=== PATIENT | female | born 2000 | race Caucasian/White ===

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

== ENCOUNTER 2023-01-21 09:44 | Emergency (ER) | payer MEDICAID, SELFPAY ==
[2023-01-21 09:48] VITALS: BP 106/73; PULSE 77; RESP 14; TEMP 36.2; O2SAT 99; BMI 20.1
[2023-01-21 10:11] LABS: MANUAL DIFF FLAG NO
[2023-01-21 10:15] LABS: Basophils Percent Auto 0.4 % (0-2); Eosinophils Absolute Auto 0.1 X10*3/uL (0.0-0.4); Eosinophils Percent Auto 0.8 % (0-4); Hematocrit 35.8 % (37.0-47.0); Hemoglobin 11.9 g/dl (12.0-16.0); Imm Gran Abs Auto 0.02 X10*3/uL (0.00-0.03); Imm Gran Pct Auto 0.3 % (0.0-0.4); Lymphocytes Absolute Auto 2.2 X10*3/uL (1.2-4.9); Lymphocytes Percent Auto 29.8 % (20-40); Mean Corpuscular HGB Conc 33.2 g/dl (31.0-35.0); Mean Corpuscular Hemoglobin 30.8 pg (27.0-33.0); Mean Corpuscular Volume 92.7 fL (80.0-98.0); Mean Platelet Volume 9.4 fL (9.4-12.3); Monocytes Absolute Auto 0.4 X10*3/uL (0.1-1.2); Monocytes Percent Auto 5.2 % (2-11); Neutrophils Absolute Auto 4.7 x10*3/uL (2.0-8.3); Neutrophils Percent Auto 63.5 % (45-73); Platelet Count 210 X10*3/uL (160-400); Red Blood Count 3.86 X10*6/uL (4.20-5.50); Red Cell Distribution Width 11.8 % (11.0-16.0); White Blood Count 7.3 X10*3/uL (4.8-10.8)
[2023-01-21 10:35] LABS: Alanine Aminotransferase 7 U/L (0-31); Albumin Level 4.5 g/dL (3.5-5.0); Alkaline Phosphatase 57 U/L (39-117); Anion Gap 12 (12-20); Aspartate Amino Transferase 11 U/L (5-31); Bilirubin Total 0.4 mg/dL (0.0-1.0); Blood Urea Nitrogen 8 mg/dL (9-16); Calcium 9.1 mg/dL (8.4-10.2); Carbon Dioxide 22 mmol/L (22-29); Chloride 108 mmol/L (96-108); Creatinine Clr Calc Pharmacy 111.8; Estimated Glomerular Filt Rate > 60; Glucose Random 90 mg/dL (60-115); Potassium 3.5 mmol/L (3.3-5.1); Sodium 138 mmol/L (135-145); Total Protein 7.3 g/dL (6.5-8.0)
[2023-01-21] MEDS: Acetaminophen 325 MG TABLET 650 MG PO (10:45)
--- NOTE | 2023-01-21 10:52 | ED_ITS ---
HPI - Nausea/Vomiting/Diarrhea General Chief complaint: Nausea/Vomiting/Diarrhea Stated complaint: headache Time Seen by Provider: 01/21/23 10:13 Source: patient Mode of arrival: ambulatory Limitations: no limitations History of Present Illness HPI Narrative: 22-year-old female presenting with complaints of nausea, diffuse headache for the past 4 days, reports that this morning she felt like something was off, has not had a period since late November and took a test at home which is positive. Reports her headache is diffuse in nature without trauma, visual changes, dizziness or weakness. Also reports she has been nauseous throughout the entire day for the past 4 days. Has not yet seen an OBGYN. Not taking vitamins. Denies fevers, chills, chest pain, shortness breath, vision changes, dizziness, weakness, trauma, abdominal pain, vaginal bleeding. Related Data Previous Rx's Medication Instructions Recorded mv-mn no.97-folic 180 mcg-dha 25 1 tab PO DAILY #30 tabs 01/21/23 mg-herb no.293 25 mg chewable tablet (Alive Daily Support ) Allergies Allergy/AdvReac Type Severity Reaction Status Date / Time amoxicillin Allergy Hives Verified 01/21/23 09:48 diphenhydramine Allergy Hives Verified 01/21/23 09:48 [From Benadryl] Sulfa (Sulfonamide Allergy Hives Verified 01/21/23 09:48 Antibiotics) Review of Systems 2 Review of Systems: Constitutional : No Weight loss, No Fever, No Chills, No Fatigue, No Malaise ENT/Mouth : No sore throat, No Rhinorrhea Eyes: No Eye Pain, No Swelling, No Redness Cardiovascular : No Chest Pain, No SOB, No Dyspnea on Exertion, No Orthopnea, No Edema, No Palpitations Respiratory : No Cough, No Sputum, No Wheezing Gastrointestinal : + Nausea, No Vomiting, No Diarrhea, No Constipation, No abdominal Pain, No Hematochezia, No Melena Genitourinary : No Dysuria, No Urinary Frequency, No Hematuria, Musculoskeletal : No joint pain, No Myalgias, No Joint Swelling Skin : No Skin Lesions, No rash Neuro : No Weakness, No Numbness, No Dizziness, + Headache Psych : No Anxiety/Panic, No Depression All other systems reviewed and are negative Yes all other systems are reviewed and are negative [facility] Past Medical History Attestation statement: The following information was validated with the patient. Source: old records reviewed and nursing notes reviewed Social History Social History Advance Directives: No Advance Directives Information Provided: Yes Physical Exam 2 Vital Signs: Vital Signs: Last Vital Signs Temp 97.1 F 01/21/23 09:48 Pulse 67 01/21/23 12:03 Resp 14 01/21/23 12:03 BP 99/57 L 01/21/23 12:03 Pulse Ox 100 01/21/23 12:03 O2 Del Method Room Air 01/21/23 12:03 BMI result Body Mass Index 20.1 vss Appearance: Alert.? Oriented X3.? No acute distress.? Head: Normocephalic, atraumatic, no step-offs or deformities Eyes: Pupils equal, round and reactive to light.? Neck: Normal inspection.? Neck supple.? CVS: Normal heart rate and rhythm.? Pulses normal.? Respiratory: No respiratory distress.? Breath sounds normal.? Abdomen: Soft and nontender.? Skin: Skin warm and dry.? Normal skin color.? Normal skin turgor.? Extremities: No lower extremity edema.? No calf ttp. 5/5 strength to bilateral upper and lower extremities Neuro: Oriented X 3.? No motor deficit.? No sensory deficit. CN 2-12 intact Course Reevaluation(s) Reevaluation #1: CBC with a normocytic anemia likely secondary to . Chemistry unremarkable. Beta hCG 28,922 patient will be discharged home with vitamins. Will have her follow-up with OBGYN. Headache improved with Tylenol. Educated patient on diagnosis and treatment plan, answered all question, patient verbalizes understanding. At this time patient will be discharged home, advised to return with new or worsening symptoms. Educated on worrisome signs and symptoms and when to return. At this time I feel comfortable discharge home. Time: 12:36 Medications Administered Discontinued Medications Generic Name Dose Route Start Last Admin Trade Name Freq PRN Reason Stop Dose Admin Acetaminophen 650 mg 01/21/23 10:35 01/21/23 10:45 Acetaminophen 325 Mg Tablet PO 01/21/23 10:36 650 mg ONCE ONE Administration Medical Decision Making Medical Decision Making [facility] Narrative: 1030 22 yo f presents w/ nausea and headache X 4 days. + this morning Pe benign. Neuro nonfocal. Cerebellar intact Hx and PE concerning for . No abd pain or bleeding therfor low suspicion for torsion, ectopic. No vomiting, unlikley metabolic derrangments. headache likely secondary to , unlikely intracranial hemorrhage, stroke, posterior stroke. Plan labs, hCG will give Tylenol for pain. Differential Diagnosis Differential Diagnoses: The differential diagnosis associated with the presentation includes Hx and PE concerning for . No abd pain or bleeding therfor low suspicion for torsion, ectopic. No vomiting, unlikley metabolic derrangments. headache likely secondary to , unlikely intracranial hemorrhage, stroke, posterior stroke. Admission/Observation Consideration of admission/observation: Escalation of care including admission/observation considered Unlikely Lab Data MDM Lab Attestation statement: I reviewed the patient's lab results. 01/21/23 10:05 01/21/23 10:05 Labs: Lab Results 01/21/23 01/21/23 Range/Units 10:05 12:22 WBC 7.3 (4.8-10.8) X10*3/uL RBC 3.86 L (4.20-5.50) X10*6/uL Hgb 11.9 L (12.0-16.0) g/dl Hct 35.8 L (37.0-47.0) % MCV 92.7 (80.0-98.0) fL MCH 30.8 (27.0-33.0) pg MCHC 33.2 (31.0-35.0) g/dl RDW 11.8 (11.0-16.0) % Plt Count 210 (160-400) X10*3/uL MPV 9.4 (9.4-12.3) fL Immature Gran % (Auto) 0.3 (0.0-0.4) % Neut % (Auto) 63.5 (45-73) % Lymph % (Auto) 29.8 (20-40) % [place] % (Auto) 5.2 (2-11) % Eos % (Auto) 0.8 (0-4) % Baso % (Auto) 0.4 (0-2) % Lymph # (Auto) 2.2 (1.2-4.9) X10*3/uL [place] # (Auto) 0.4 (0.1-1.2) X10*3/uL Eos # (Auto) 0.1 (0.0-0.4) X10*3/uL Baso # (Auto) 0.0 (0.0-0.2) X10*3/uL Abs Immat Gran (auto) 0.02 (0.00-0.03) X10*3/uL Absolute Neuts (auto) 4.7 (2.0-8.3) x10*3/uL Absolute Nucleated RBC 0.000 (0.0-0.012) X10*3/uL Nucleated RBC % (auto) 0.0 (0.0-0.2) /100WBC Sodium 138 (135-145) mmol/L Potassium 3.5 (3.3-5.1) mmol/L Chloride 108 (96-108) mmol/L Carbon Dioxide 22 (22-29) mmol/L Anion Gap 12 (12-20) BUN 8 L (9-16) mg/dL Creatinine 0.73 (0.5-1.4) mg/dL Estim Creat Clear Calc 111.8 Estimated GFR > 60 Random Glucose 90 (60-115) mg/dL Calcium 9.1 (8.4-10.2) mg/dL Total Bilirubin 0.4 (0.0-1.0) mg/dL AST 11 (5-31) U/L ALT 7 (0-31) U/L Alkaline Phosphatase 57 (39-117) U/L Total Protein 7.3 (6.5-8.0) g/dL Albumin 4.5 (3.5-5.0) g/dL Beta HCG, Quant 56584 mIU/mL Urine Color Yellow Urine Appearance Clear Urine pH 6.0 (5.0-9.0) Ur Specific [place] 1.025 (1.005-1.025) Urine Protein Negative (Neg-Trace) mg/dL Urine Glucose (UA) Negative (Negative) mg/dL Urine Ketones Negative (Negative) mg/dL Urine Blood Negative (Negative) Urine Nitrite Negative (Negative) Ur Leukocyte Esterase Negative (Negative) Tests considered The following testing was considered but not selected: I considered obtaining head CT however nonfocal neuro assessment no abdominal pain or tenderness to palpation, no need for transvaginal ultrasound at this time or Doppler study. Critical Care Time Critical Care Time Critical Care Time: No Discharge Plan Discharge Clinical Impression: Nausea, Elevated serum hCG Patient Disposition: Home, Self-Care Instructions: Acute Nausea and Vomiting (ED) Additional Instructions: Take your medications as prescribed. If you were prescribed antibiotics today, it is important that you take your medication to their entirety, do not skip any doses, do not finish them early. Follow-up with your primary care provider this week. Return to the emergency department with new or worsening symptoms. Such as fevers, chills, chest pain, shortness of breath, nausea, vomiting, dizziness, headache, vision changes, lethargy In case of emergency call 911 please follow-up with your PCP or OBGYN for repeat beta hCG. You should follow-up with your OBGYN return with any abdominal pain, vaginal bleeding, back pain , fevers and chills. Beta hCG 28,922, your beta hCG show that you are around 6-7 weeks put possibly up to 12 weeks. ( more than likely 6-7 based off of your last period) Prescriptions: New Alive Daily Support 180 mcg-25 mg- 25 mg tablet,chewable 1 tab PO DAILY Qty: 30 0RF Referrals: Physician,None [Primary Care Provider] - 2 days Stand Alone Forms: Work/School Release Interventions: ED Discharge Assessment Last Done: 01/21/23 12:53 Discharge Date/Time: 01/21/23 12:55
[2023-01-21 12:03] VITALS: BP 99/57; PULSE 67; RESP 14; O2SAT 100
[2023-01-21 12:41] LABS: Appearance Urine Clear; Color Urine Yellow; Glucose Urine UA Negative (Negative); Leukocyte Esterase Urine Negative (Negative); Nitrite Urine Negative (Negative); Specific Gravity - Urine 1.025 (1.005-1.025); Urine Blood Negative (Negative); Urine Ketones Negative (Negative); Urine Protein Negative (Neg-Trace)
== END 2023-01-21 12:55 | disposition home or self-care (01) ==
PROVIDERS: Emergency Provider Emergency Medicine
DX: R11.2 Nausea with vomiting, unspecified (principal); R19.7 Diarrhea, unspecified; R51.9 Headache, unspecified
CPT/HCPCS: 36415; 80053; 81003; 84702; 85025; 99283

== ENCOUNTER 2023-01-30 18:57 | Emergency (ER) | payer MEDICAID, SELFPAY ==
--- NOTE | ~2023-01-30 | US_ITS ---
EXAMINATION: US OBSTETRICAL ULTRASOUND CLINICAL INFORMATION: with pelvic pain. Positive hCG. COMPARISON: None available. LMP: Unknown. Gestational age by maternal dates is unknown. Estimated date of delivery by maternal dates is unknown. TECHNIQUE: Transabdominal imaging of pelvis is performed. FINDINGS: There is a single intrauterine gestational sac with visible yolk sac, embryo/fetus, and cardiac activity. There is no significant subchorionic hemorrhage or hematoma. HR: 139 beats per minute. CRL (crown rump length): 0.79 cm (6876 days +/- 4 days). ALBERT (estimated date of delivery): 09/16/2023 +/- 4 days. MATERNAL ADNEXA: The right maternal ovary measures 2.5 x 2.1 x 1.9 cm. The left maternal ovary measures 3.4 x 3.7 x 3.5 cm. There is anechoic cyst measuring 2.1 x 2.4 x 2.5 cm There is no significant maternal adnexal mass. No maternal pelvic ascites. US/US OB <= 14 weeks fetus IMPRESSION: 1. Single intrauterine gestation with ultrasound gestational age of 6 weeks and 6 days +/- 4 days. 2. Estimated date of delivery is 09/19/2023 +/- 4 days. 3. Small left ovarian cyst measuring 3.1 cm.
[2023-01-30 19:26] VITALS: BP 109/64; PULSE 70; RESP 18; TEMP 37; O2SAT 100; BMI 20.4
--- NOTE | 2023-01-30 19:27 | ED_ITS ---
HPI - General Adult General Chief complaint: Abdominal Pain Stated complaint: 7.5 weeks preg, stomach feels like its gnna blow History of Present Illness HPI narrative: Patient left before completion of treatment ED provider. Related Data Previous Rx's Medication Instructions Recorded mv-mn no.97-folic 180 mcg-dha 25 1 tab PO DAILY #30 tabs 01/21/23 mg-herb no.293 25 mg chewable tablet (Alive Daily Support ) Allergies Allergy/AdvReac Type Severity Reaction Status Date / Time amoxicillin Allergy Hives Verified 01/30/23 19:26 diphenhydramine Allergy Hives Verified 01/30/23 19:26 [From Benadryl] Sulfa (Sulfonamide Allergy Hives Verified 01/30/23 19:26 Antibiotics) [facility] Social History Social History Advance Directives: No Advance Directives Information Provided: No Physical Exam ED Vital Signs: BMI result Body Mass Index 20.4 Course Course Course Narrative: RME: 22 yold female presents to the ED for pelvic pain. patient is 7.5 weeks . patient states no nuasea, vomitting, or dysuria. labs and OB ultrasound ordered Medical Decision Making Lab Data 01/30/23 21:26 01/30/23 21:25 Labs: Lab Results 01/30/23 01/30/23 Range/Units 21:25 21:26 WBC 8.6 (4.8-10.8) X10*3/uL RBC 3.66 L (4.20-5.50) X10*6/uL Hgb 11.0 L (12.0-16.0) g/dl Hct 33.0 L (37.0-47.0) % MCV 90.2 (80.0-98.0) fL MCH 30.1 (27.0-33.0) pg MCHC 33.3 (31.0-35.0) g/dl RDW 11.6 (11.0-16.0) % Plt Count 201 (160-400) X10*3/uL MPV 9.6 (9.4-12.3) fL Immature Gran % (Auto) 0.3 (0.0-0.4) % Neut % (Auto) 72.6 (45-73) % Lymph % (Auto) 21.9 (20-40) % [place] % (Auto) 4.1 (2-11) % Eos % (Auto) 0.9 (0-4) % Baso % (Auto) 0.2 (0-2) % Lymph # (Auto) 1.9 (1.2-4.9) X10*3/uL [place] # (Auto) 0.4 (0.1-1.2) X10*3/uL Eos # (Auto) 0.1 (0.0-0.4) X10*3/uL Baso # (Auto) 0.0 (0.0-0.2) X10*3/uL Abs Immat Gran (auto) 0.03 (0.00-0.03) X10*3/uL Absolute Neuts (auto) 6.2 (2.0-8.3) x10*3/uL Absolute Nucleated RBC 0.000 (0.0-0.012) X10*3/uL Nucleated RBC % (auto) 0.0 (0.0-0.2) /100WBC PT 11.5 (11.1-13.3) SEC INR 0.9 (0.9-1.1) APTT 30.5 (26.0-36.4) SEC Sodium 139 (135-145) mmol/L Potassium 2.8 L (3.3-5.1) mmol/L Chloride 105 (96-108) mmol/L Carbon Dioxide 23 (22-29) mmol/L Anion Gap 14 (12-20) BUN 8 L (9-16) mg/dL Creatinine 0.56 (0.5-1.4) mg/dL Estim Creat Clear Calc 147.9 Estimated GFR > 60 Random Glucose 96 (60-115) mg/dL Calcium 9.4 (8.4-10.2) mg/dL Total Bilirubin 0.2 (0.0-1.0) mg/dL AST 12 (5-31) U/L ALT 9 (0-31) U/L Alkaline Phosphatase 58 (39-117) U/L Total Protein 7.4 (6.5-8.0) g/dL Albumin 4.4 (3.5-5.0) g/dL Beta HCG, Quant 694099 mIU/mL Blood Type O Positive Discharge Plan Discharge Clinical Impression: Abdominal pain Patient Disposition: Left W/O Completing Treatment Prescriptions: No Action Alive Daily Support 180 mcg-25 mg- 25 mg tablet,chewable 1 tab PO DAILY Qty: 30 0RF Discharge Date/Time: 01/30/23 23:19
[2023-01-30 21:30] LABS: MANUAL DIFF FLAG NO
[2023-01-30 21:33] LABS: Basophils Percent Auto 0.2 % (0-2); Eosinophils Absolute Auto 0.1 X10*3/uL (0.0-0.4); Eosinophils Percent Auto 0.9 % (0-4); Imm Gran Abs Auto 0.03 X10*3/uL (0.00-0.03); Imm Gran Pct Auto 0.3 % (0.0-0.4); Lymphocytes Absolute Auto 1.9 X10*3/uL (1.2-4.9); Lymphocytes Percent Auto 21.9 % (20-40); Mean Corpuscular HGB Conc 33.3 g/dl (31.0-35.0); Mean Corpuscular Hemoglobin 30.1 pg (27.0-33.0); Mean Corpuscular Volume 90.2 fL (80.0-98.0); Mean Platelet Volume 9.6 fL (9.4-12.3); Monocytes Absolute Auto 0.4 X10*3/uL (0.1-1.2); Monocytes Percent Auto 4.1 % (2-11); Neutrophils Absolute Auto 6.2 x10*3/uL (2.0-8.3); Neutrophils Percent Auto 72.6 % (45-73); Platelet Count 201 X10*3/uL (160-400); Red Blood Count 3.66 X10*6/uL (4.20-5.50); Red Cell Distribution Width 11.6 % (11.0-16.0); White Blood Count 8.6 X10*3/uL (4.8-10.8)
[2023-01-30 21:44] LABS: INTERNATIONAL NORM RATIO 0.9 (0.9-1.1); Prothrombin Time 11.5 SEC (11.1-13.3)
[2023-01-30 21:47] LABS: Partial Thromboplastin Time 30.5 SEC (26.0-36.4)
[2023-01-30 23:25] LABS: Alanine Aminotransferase 9 U/L (0-31); Albumin Level 4.4 g/dL (3.5-5.0); Alkaline Phosphatase 58 U/L (39-117); Anion Gap 14 (12-20); Aspartate Amino Transferase 12 U/L (5-31); Bilirubin Total 0.2 mg/dL (0.0-1.0); Blood Urea Nitrogen 8 mg/dL (9-16); Calcium 9.4 mg/dL (8.4-10.2); Carbon Dioxide 23 mmol/L (22-29); Chloride 105 mmol/L (96-108); Creatinine Clr Calc Pharmacy 147.9; Estimated Glomerular Filt Rate > 60; Glucose Random 96 mg/dL (60-115); Potassium 2.8 mmol/L (3.3-5.1); Sodium 139 mmol/L (135-145); Total Protein 7.4 g/dL (6.5-8.0)
== END 2023-01-30 23:19 | disposition left against medical advice (07) ==
PROVIDERS: Physician Assistant; Emergency Provider Emergency Medicine
DX: O26.891 Other specified pregnancy related conditions, first trimester (principal); R10.2 Pelvic and perineal pain; O34.81 Maternal care for other abnormalities of pelvic organs, first trimester; N83.202 Unspecified ovarian cyst, left side; Z3A.01 Less than 8 weeks gestation of pregnancy
CPT/HCPCS: 36415; 76801; 80053; 84702; 85025; 85610; 85730; 86900; 86901; 99281; 99284